=== PATIENT | female | born 1965 | race African-American/Black ===

== ENCOUNTER 2023-06-08 10:36 | Outpatient (CLI) | payer BC | END 2023-06-08 10:37 | disposition home or self-care (01) | LOC: CSHMAMMO 10:36 | PROVIDERS: ATTEND Family Medicine | DX: Z12.31 Encounter for screening mammogram for malignant neoplasm of breast (principal) | CPT/HCPCS: 77063; 77067 ==

== ENCOUNTER 2024-07-14 15:48 | Outpatient (CLI) | payer BC | END 2024-07-14 15:49 | disposition home or self-care (01) | LOC: CSHDTY/OP 15:48 | PROVIDERS: ATTEND Specialist | DX: E66.01 Morbid (severe) obesity due to excess calories (principal) | CPT/HCPCS: 97802 ==